=== PATIENT | female | born 1980 ===

== ENCOUNTER → 2019-01-06 | Outpatient (CLI) | payer BC ==
[2019-01-06 19:25] LABS: BACTERIA (WET MOUNT) 3+ BACTERIA SEEN; T.VAGINALIS (WET MOUNT) NO TRICHOMONAS SEEN; WBCS (WET MOUNT) FEW WBCS SEEN; YEAST (WET MOUNT) NO YEAST SEEN
[2019-01-06 19:26] LABS: EPITHELIALS (WET MOUNT) 3+ EPITHELIALS SEEN
[2019-01-06 20:58] LABS: CHLAM PCR NOT DETECTED (NOT DETECT); GON PCR NOT DETECTED (NOT DETECT)
== END ==
LOC: LAB 18:46
PROVIDERS: ATTEND Nurse Practitioner Family
DX: N89.8 Other specified noninflammatory disorders of vagina (principal)
CPT/HCPCS: 87086; 87210; 87491; 87591